=== PATIENT | male | born 1945 | race Caucasian/White ===

== ENCOUNTER → 2018-05-15 | Outpatient (CLI) | payer OTHER ==
[~2018-05-15] MED LIST: HYDR25TA6 PO; METF500T5 PO; QUIN40TA15 PO
[2018-05-15 14:56] LABS: ALBUMIN 3.7 g/dL (3.4-5.0); ANION GAP 6 mmol/L (5-15); CALCIUM 9.1 mg/dL (8.5-10.1); CHLORIDE 104 mmol/L (98-107)
[2018-05-15 15:00] LABS: ALANINE AMINOTRANSFERASE 41 U/L (12-78); ALKALINE PHOSPHATASE 77 U/L (45-117); BILIRUBIN,TOTAL 0.6 mg/dL (0.2-1.0); TOTAL PROTEIN 7.2 g/dL (6.4-8.2)
[2018-05-15 15:06] LABS: BASOPHILS # (AUTO) 0.05 x10^3/uL (0-0.1); BASOPHILS % (AUTO) 1 % (0-1); EOSINOPHILS # (AUTO) 0.11 x10^3/uL (0-0.4); EOSINOPHILS % (AUTO) 1 % (1-7); LYMPHOCYTES # (AUTO) 2.06 x10^3/uL (1-3.4); LYMPHOCYTES % (AUTO) 24 % (22-44); MD NO; MEAN CORPUSCULAR HEMOGLOBIN 27.7 pg (27.5-34.5); MEAN CORPUSCULAR HGB CONC 33.4 g/dL (33.2-36.2); MEAN CORPUSCULAR VOLUME 82.7 fL (81-97); MEAN PLATELET VOLUME 9.4 fL (7.4-10.4); MONOCYTES # (AUTO) 0.77 x10^3/uL (0.2-0.8); MONOCYTES % (AUTO) 9 % (2-9); NEUTROPHILS # (AUTO) 5.79 x10^3/uL (1.8-6.8); NEUTROPHILS % (AUTO) 66 % (42-75); PLATELET COUNT 269 x10^3/uL (130-400); RED BLOOD COUNT 5.36 x10^6/uL (4.38-5.82); RED CELL DISTRIBUTION WIDTH 14.8 % (9.4-14.8)
== END | disposition home or self-care (01) ==
LOC: STAR 13:37
PROVIDERS: ATTEND Surgery
DX: Z01.818 Encounter for other preprocedural examination (principal); C19 Malignant neoplasm of rectosigmoid junction; I44.4 Left anterior fascicular block
CPT/HCPCS: 36415; 80053; 85025; 93005

== ENCOUNTER 2018-05-24 09:50 | Inpatient (IN) | payer OTHER ==
[~2018-05-24] VITALS: Ht 175.3 cm; Wt 101.7 kg
[~2018-05-24 09:50] MED LIST changes: +BUPIVACAINE/PF-EPI 0.5% 1:200K ONE; +INDOCYANINE GREEN 25 MG VIAL ONE
[2018-05-24] MEDS ORDERED: LACTATED RINGERS 1,000 ML IV SCH (10:14)
[2018-05-24] MEDS ORDERED: ACETAMINOPHEN 500 MG TABLET PO ONE (10:30)
[2018-05-24] MEDS ORDERED: GABAPENTIN 300 MG CAPSULE PO ONE (10:30)
[2018-05-24] MEDS ORDERED: PHENYLEPHRINE 10 MG/ML ONE (10:44)
[2018-05-24 10:55] VITALS: BP 123/85
[2018-05-24] MEDS ORDERED: MIDAZOLAM 1 MG/ML, 2ML ONE (10:58)
[2018-05-24] MEDS ORDERED: FENTANYL PF 250 MCG/5ML ONE ×2 (10:58→15:06)
[2018-05-24] MEDS ORDERED: LIDOCAINE GEL 2%, 5ML ONE (11:13)
[2018-05-24] MEDS ORDERED: BUPIVACAINE/PF 0.25% ONE ×2 (11:13)
[2018-05-24] MEDS ORDERED: EPINEPHRINE 1 MG/ML, 1ML ONE (11:14)
[2018-05-24] MEDS ORDERED: CEFOTETAN PMX 2GM/50ML 50 ML ONE (11:14)
[2018-05-24] MEDS ORDERED: EPHEDRINE 50 MG/ML, 1ML IM PRN (13:00)
[2018-05-24] MEDS ORDERED: MIDAZOLAM 1 MG/ML, 2ML IV PRN (13:00)
[2018-05-24] MEDS ORDERED: HYDROmorphone 1 MG/ML, 1ML IV PRN (13:00)
[2018-05-24] MEDS ORDERED: ONDANSETRON 2MG/ML, 2ML IV PRN (13:00)
[2018-05-24] MEDS ORDERED: MEPERIDINE/PF 25MG/0.5ML IVPush PRN (13:00)
[2018-05-24] MEDS ORDERED: FENTANYL PF 100 MCG/2ML IV PRN (13:00)
[2018-05-24] MEDS ORDERED: LABETALOL 5MG/ML, 20ML IV PRN (13:00)
[2018-05-24] MEDS ORDERED: OXYcodone 5 MG/5 ML ORAL.SOL UDC PO PRN (13:00)
[2018-05-24] MEDS ORDERED: PROMETHAZINE 25 MG/ML, 1ML IV PRN (13:00)
[2018-05-24] MEDS ORDERED: ALBUTEROL/IPRATROPIUM 2.5MG/0.5MG, 3 ML NPPB PRN (13:00)
[2018-05-24] MEDS ORDERED: ONDANSETRON 2MG/ML, 2ML ONE (13:42)
[2018-05-24] MEDS ORDERED: DEXAMETHASONE 4 MG/ML, 1ML ONE (13:42)
[2018-05-24] MEDS ORDERED: NEOSTIGMINE 1 MG/ML, 10ML ONE (13:42)
[2018-05-24] MEDS ORDERED: CEFAZOLIN 1,000 MG ONE (13:42)
[2018-05-24] MEDS ORDERED: GLYCOPYRROLATE 0.2MG/1ML, 5ML ONE (13:42)
[2018-05-24] MEDS ORDERED: PROPOFOL 10 MG/ML, 20ML ONE (13:42)
[2018-05-24] MEDS ORDERED: SUCCINYLCHOLINE 20 MG/ML, 10ML ONE (13:42)
[2018-05-24] MEDS ORDERED: ROCURONIUM 10MG/ML,5ML ONE ×2 (13:42)
[2018-05-24] MEDS: LACTATED RINGERS 1,000 ML IV SCH (16:05)
[2018-05-24] MEDS ORDERED: DIPHENHYDRAMINE 50 MG/ML, 1ML IVPush PRN (16:30)
[2018-05-24] MEDS ORDERED: CALCIUM CARBONATE 500 MG TAB.CHEW PO PRN (16:30)
[2018-05-24] MEDS ORDERED: FENTANYL PF 100 MCG/2ML IVPush PRN (16:30)
[2018-05-24] MEDS ORDERED: ONDANSETRON 2MG/ML, 2ML IVPush PRN (16:30)
[2018-05-24] MEDS: ACETAMINOPHEN 500 MG TABLET PO SCH ×2 (16:30→22:21)
[2018-05-24] MEDS ORDERED: OXYcodone IR 5MG TABLET PO PRN (16:30)
[2018-05-24] MEDS ORDERED: LORazepam 2 MG/ML, 1ML IVPush PRN (16:30)
[2018-05-24] MEDS ORDERED: OXYcodone 5 MG/5 ML ORAL.SOL UDC ONE (17:06)
[2018-05-24] MEDS ORDERED: HYDROmorphone 2 MG/ML, 1ML ONE (17:19)
[2018-05-24 19:05] VITALS: BP 129/86
[2018-05-24] MEDS: AMPICILLIN/SULBACTAM 3 GM in SODIUM CHLORIDE 0.9% 100 ML IV SCH (19:46)
[2018-05-25] MEDS: AMPICILLIN/SULBACTAM 3 GM in SODIUM CHLORIDE 0.9% 100 ML IV SCH ×2 (01:29→07:50)
[2018-05-25 02:40] VITALS: BP 126/78
[2018-05-25 04:00] VITALS: BP 113/69
[2018-05-25 04:30] LABS: MEAN CORPUSCULAR HEMOGLOBIN 27.6 pg (27.5-34.5); MEAN CORPUSCULAR HGB CONC 33.3 g/dL (33.2-36.2); MEAN CORPUSCULAR VOLUME 82.8 fL (81-97); MEAN PLATELET VOLUME 9.3 fL (7.4-10.4); PLATELET COUNT 253 x10^3/uL (130-400); RED BLOOD COUNT 4.33 x10^6/uL (4.38-5.82); RED CELL DISTRIBUTION WIDTH 14.9 % (9.4-14.8)
[2018-05-25 04:36] LABS: ANION GAP 10 mmol/L (5-15); CALCIUM 7.9 mg/dL (8.5-10.1); CHLORIDE 105 mmol/L (98-107); CREATININE 1.17 mg/dL (0.7-1.3)
[2018-05-25] MEDS: ACETAMINOPHEN 500 MG TABLET PO SCH ×4 (04:50→22:54)
[2018-05-25 05:10] LABS: BASOPHILS # (AUTO) 0.02 x10^3/uL (0-0.1); BASOPHILS % (AUTO) 0 % (0-1); EOSINOPHILS % (AUTO) 0 % (1-7); LYMPHOCYTES % (AUTO) 4 % (22-44); MONOCYTES # (AUTO) 1.77 x10^3/uL (0.2-0.8); MONOCYTES % (AUTO) 11 % (2-9); NEUTROPHILS # (AUTO) 13.64 x10^3/uL (1.8-6.8); NEUTROPHILS % (AUTO) 85 % (42-75)
[2018-05-25 05:11] LABS: MD SCAN
[2018-05-25 08:34] VITALS: BP 120/77
[2018-05-25] MEDS: LACTATED RINGERS 1,000 ML IV SCH ×2 (11:13→18:38)
[2018-05-25 14:09] VITALS: BP 107/49
[2018-05-25 18:55] VITALS: BP 101/61
[2018-05-26 00:34] VITALS: BP 100/60
[2018-05-26] MEDS: ACETAMINOPHEN 500 MG TABLET PO SCH ×4 (05:19→22:39)
[2018-05-26 06:39] VITALS: BP 103/65
[2018-05-26] MEDS: ENOXAPARIN 30 MG/0.3 ML SQ SCH ×2 (10:31→22:39)
[2018-05-26 14:14] VITALS: BP 118/69
[2018-05-26 21:57] VITALS: BP 125/74
[2018-05-27 01:58] VITALS: BP 137/81
[2018-05-27] MEDS: ACETAMINOPHEN 500 MG TABLET PO SCH ×2 (05:05→11:05)
[2018-05-27 06:57] VITALS: BP 135/77
[2018-05-27] MEDS ORDERED: OXYC5CAP2 PO (09:41)
[2018-05-27] MEDS: ENOXAPARIN 30 MG/0.3 ML SQ SCH (11:06)
== END 2018-05-27 11:35 | disposition home or self-care (01) | DRG 330 ==
LOC: ORIP 09:50 → 4NOR 18:18
PROVIDERS: ADMIT Surgery; ATTEND Surgery
PROC: 0D1B0Z4 Bypass Ileum to Cutaneous, Open Approach (ICD-10-PCS; 2018-05-24)
PROC: 0DBP0ZZ Excision of Rectum, Open Approach (ICD-10-PCS; 2018-05-24)
PROC: 0DJD4ZZ Inspection of Lower Intestinal Tract, Percutaneous Endoscopic Approach (ICD-10-PCS; 2018-05-24)
PROC: 8E0W4CZ Robotic Assisted Procedure of Trunk Region, Percutaneous Endoscopic Approach (ICD-10-PCS; 2018-05-24)
PROC: 0DBM0ZZ Excision of Descending Colon, Open Approach (ICD-10-PCS; 2018-05-24)
PROC: 0DTN0ZZ Resection of Sigmoid Colon, Open Approach (ICD-10-PCS; principal; 2018-05-24 12:00)
DX: C18.9 Malignant neoplasm of colon, unspecified (principal); E44.0 Moderate protein-calorie malnutrition; I10 Essential (primary) hypertension; E11.9 Type 2 diabetes mellitus without complications
CPT/HCPCS: 36415; 74018; 80048; 82040; 82962; 85025; 86850; 86900; 88309; C1729; J0171; J0295; J0690; J1100; J1170; J1650; J2250; J2405; J2704; J2710; J3010; J3490; C1765; J0330; J2060; J2370; J7120; S0074